=== PATIENT | male | born 1955 | race African-American/Black ===

== ENCOUNTER 2019-08-11 19:40 | Observation (INO) ==
[2019-08-11] MEDS ORDERED: *HR* Midazolam HCl 2 MG/2 ML VIAL ONE (20:04)
[2019-08-11] MEDS ORDERED: *HR* FentaNYL (PF) 100 MCG/2 ML VIAL ONE (20:04)
[2019-08-11] MEDS ORDERED: 0.9 % Sodium Chloride 1,000 ML ONE (20:04)
[2019-08-11 20:12] LABS: Basophils % 0.8 %; Eosinophils # 0.2 K/mcL (0.0-0.6); Eosinophils % 4.2 %; Hematocrit 43.8 % (37.5-50.1); Hemoglobin 14.2 g/dL (12.9-16.9); Immature Granulocytes % 0.2 % (0-4); Lymphocytes # 1.8 K/mcL (0.6-4.6); Lymphocytes % 36.6 %; Mean Corpuscular HGB Conc 32.4 g/dL (31.6-35.5); Mean Corpuscular Hemoglobin 29.4 pg (28.0-33.3); Mean Corpuscular Volume 90.7 fL (83.0-100.0); Mean Platelet Volume 11.4 fL (9.4-12.4); Monocytes # 0.7 K/mcL (0.0-1.3); Monocytes % 14.5 %; Neutrophils # 2.2 K/mcL (1.6-8.9); Platelet Count 266 K/mcL (140-400); Red Blood Count 4.83 M/mcL (4.19-5.50); Red Cell Distribution Width 15.6 % (11.5-14.5); Segmented Neutrophils % 43.7 %
[2019-08-11] MEDS ORDERED: *HR* Heparin 5,000 UNIT/ML VIAL IVP ONE (20:15)
[2019-08-11] MEDS ORDERED: Heparin 25,000 UNIT/250 ML D5W 25,000 UNIT/250 ML IV.SOLN IVC SCH ×2 (20:15→20:23)
[2019-08-11] MEDS ORDERED: *HR* Heparin 5,000 UNIT/ML VIAL IVP PRN ×2 (20:15)
[2019-08-11 20:16] LABS: INR 1.9; Prothrombin Time 21.9 Seconds (9.4-12.1)
[2019-08-11 20:19] LABS: Activated Partial Thrombo Time 43.5 Seconds (26.0-36.0)
[2019-08-11 20:27] LABS: BUN/Creatinine Ratio 20 (6-26); Blood Urea Nitrogen 26 mg/dL (8-23); Calcium 9.7 mg/dL (8.6-10.3); Carbon Dioxide 23 mEq/L (23-29); Chloride 101 mEq/L (98-107); Glucose 112 mg/dL (70-105); Osmolality,Calculated 292 (280-300); Potassium 4.1 mEq/L (3.5-5.1); Sodium 138 mEq/L (136-145); eGFR For African Americans > 60 (> 60); eGFR For Non-African Americans 55 (> 60)
[2019-08-11 20:30] LABS: Troponin I 0.09 ng/mL (< 0.04)
[2019-08-11 20:40] LABS: Heparin anti-factor XA UFH > 2.00 IU/mL (0.30-0.70)
[2019-08-12] MEDS ORDERED: Naloxone 0.4 MG/ML INJ IVP PRN (01:07)
[2019-08-12 05:55] LABS: Alanine Aminotransferase 23 Units/L (7-52); Albumin 3.7 g/dL (3.5-5.7); Albumin/Globulin Ratio 1.1 (1.1-2.2); Alkaline Phosphatase 87 Units/L (34-104); Aspartate Amino Transferase 35 Units/L (13-39); BUN/Creatinine Ratio 25 (6-26); Bilirubin,Total 0.3 mg/dL (0.3-1.0); Blood Urea Nitrogen 27 mg/dL (8-23); Calcium 9.4 mg/dL (8.6-10.3); Carbon Dioxide 28 mEq/L (23-29); Chloride 103 mEq/L (98-107); Globulin 3.3 g/dL (2.4-3.5); Glucose 107 mg/dL (70-105); Osmolality,Calculated 296 (280-300); Potassium 3.8 mEq/L (3.5-5.1); Sodium 140 mEq/L (136-145); Troponin I 3.04 ng/mL (< 0.04); eGFR For African Americans > 60 (> 60); eGFR For Non-African Americans > 60 (> 60)
[2019-08-12] MEDS ORDERED: *HR* Rivaroxaban 10 MG TABLET PO SCH ×3 (08:00→17:00)
[2019-08-12] MEDS ORDERED: *HR* Heparin 5,000 UNIT/ML VIAL IVP PRN ×2 (08:32)
[2019-08-12] MEDS ORDERED: Heparin 25,000 UNIT/250 ML D5W 25,000 UNIT/250 ML IV.SOLN IVC SCH (08:45)
[2019-08-12] MEDS: Aspirin Enteric Coated 81 MG Tablet PO SCH (08:55)
[2019-08-12] MEDS: Thiamine (B-1) 100 MG TABLET PO SCH (08:55)
[2019-08-12] MEDS: Bumetanide 1 MG TABLET PO SCH ×2 (08:55→16:59)
[2019-08-12] MEDS: *HR* Amiodarone 200 MG TABLET PO SCH ×2 (08:55→22:46)
[2019-08-12] MEDS: Folic Acid 1 MG TABLET PO SCH (08:56)
[2019-08-12 09:19] LABS: Hematocrit 41.5 % (37.5-50.1); Hemoglobin 13.5 g/dL (12.9-16.9); Mean Corpuscular HGB Conc 32.5 g/dL (31.6-35.5); Mean Corpuscular Hemoglobin 29.2 pg (28.0-33.3); Mean Corpuscular Volume 89.8 fL (83.0-100.0); Mean Platelet Volume 10.9 fL (9.4-12.4); Platelet Count 248 K/mcL (140-400); Red Blood Count 4.62 M/mcL (4.19-5.50); Red Cell Distribution Width 15.8 % (11.5-14.5)
[2019-08-12 09:23] LABS: INR 1.7; Prothrombin Time 18.9 Seconds (9.4-12.1)
[2019-08-12 09:25] LABS: Heparin anti-factor XA UFH 1.44 IU/mL (0.30-0.70)
[2019-08-12] MEDS ORDERED: ISOVUE-370 200 ML INFUS..BTL ONE (13:50)
[2019-08-12] MEDS ORDERED: 0.9 % Sodium Chloride 1,000 ML ONE (13:50)
[2019-08-12] MEDS ORDERED: Heparin 1,000 UNITS/500 mL 500 ML ONE (13:50)
[2019-08-12] MEDS ORDERED: Nitroglycerin 1,000 MCG/10 ML VIAL IV ONE (13:50)
[2019-08-12] MEDS ORDERED: *HR* Heparin 10,000 UNIT/10 ML VIAL ONE (13:50)
[2019-08-12] MEDS ORDERED: *HR* Midazolam HCl 2 MG/2 ML VIAL ONE (14:27)
[2019-08-12] MEDS ORDERED: *HR* FentaNYL (PF) 100 MCG/2 ML VIAL ONE (14:28)
[2019-08-12] MEDS: carvediloL 6.25 MG TABLET PO SCH (16:59)
[2019-08-12] MEDS ORDERED: Perflutren Lipid Microsphere 1.3 ML in 0.9 % Sodium Chloride 8.7 ML IVP ONE (21:26)
[2019-08-12] MEDS: hydrOXYzine pamoate 25 MG CAPSULE PO PRN (22:46)
[2019-08-12] MEDS: *HR* Rivaroxaban 10 MG TABLET PO SCH (22:46)
[2019-08-13 04:34] LABS: Eosinophils # 0.2 K/mcL (0.0-0.6); Eosinophils % 4.8 %; Hematocrit 41.2 % (37.5-50.1); Hemoglobin 13.2 g/dL (12.9-16.9); Immature Granulocytes % 0.2 % (0-4); Lymphocytes # 1.5 K/mcL (0.6-4.6); Lymphocytes % 35.7 %; Mean Corpuscular Hemoglobin 28.9 pg (28.0-33.3); Mean Corpuscular Volume 90.2 fL (83.0-100.0); Monocytes # 0.5 K/mcL (0.0-1.3); Monocytes % 12.6 %; Neutrophils # 1.9 K/mcL (1.6-8.9); Platelet Count 245 K/mcL (140-400); Red Blood Count 4.57 M/mcL (4.19-5.50); Red Cell Distribution Width 15.8 % (11.5-14.5); Segmented Neutrophils % 45.7 %; White Blood Count 4.2 K/mcL (4.3-11.1)
[2019-08-13 04:54] LABS: BUN/Creatinine Ratio 21 (6-26); Blood Urea Nitrogen 24 mg/dL (8-23); Calcium 9.4 mg/dL (8.6-10.3); Carbon Dioxide 26 mEq/L (23-29); Chloride 103 mEq/L (98-107); Glucose 91 mg/dL (70-105); Osmolality,Calculated 290 (280-300); Sodium 138 mEq/L (136-145); eGFR For African Americans > 60 (> 60); eGFR For Non-African Americans > 60 (> 60)
[2019-08-13] MEDS: Bumetanide 1 MG TABLET PO SCH ×2 (07:43→17:07)
[2019-08-13] MEDS: carvediloL 6.25 MG TABLET PO SCH ×2 (07:44→17:07)
[2019-08-13] MEDS: Folic Acid 1 MG TABLET PO SCH (07:44)
[2019-08-13] MEDS: Thiamine (B-1) 100 MG TABLET PO SCH (07:44)
[2019-08-13] MEDS: Aspirin Enteric Coated 81 MG Tablet PO SCH (07:44)
[2019-08-13] MEDS: *HR* Amiodarone 200 MG TABLET PO SCH ×2 (07:44→20:38)
[2019-08-13] MEDS: *HR* Rivaroxaban 10 MG TABLET PO SCH (17:07)
[2019-08-13] MEDS: hydrOXYzine pamoate 25 MG CAPSULE PO PRN (22:52)
[2019-08-13 23:21] VITALS: BP 122/81
== END 2019-08-14 01:57 ==
LOC: EMEROOARM 19:40 → 2ANU 19:40 → SUATTDRO 22:02 → 2ANU 22:04
PROVIDERS: ADMIT Internal Medicine; ATTEND Internal Medicine